=== PATIENT | female | born 1995 | race Caucasian/White ===

== ENCOUNTER 2019-05-08 04:08 | Emergency (ER) | payer OTHER ==
[~2019-05-08] VITALS: Ht 170.2 cm; Wt 68.0 kg
[2019-05-08 05:38] LABS: HEMATOCRIT 40.8 % (37.0-47.0); HEMOGLOBIN 13.5 gm/dL (12.0-15.0); MCH 30.8 pg (26.0-34.0); MCHC 33.2 g/dL (28.0-37.0); MCV 92.8 fL (80.0-100.0); RBC 4.4 mil/uL (4.20-5.00); RDW 13.2 % (10.5-14.5); WBC 7.5 thou/uL (4.0-11.0)
[2019-05-08 05:48] LABS: CALCIUM 9.9 mg/dL (8.5-10.1); POTASSIUM 3.8 mmol/L (3.5-5.1)
[2019-05-08] MEDS ORDERED: MOBIC15 MG PO (07:04)
[2019-05-08] MEDS ORDERED: CYCLOBENZAPRINE5 MG PO (07:04)
[2019-05-08 07:26] VITALS: BP 117/53
== END 2019-05-08 07:27 | disposition home or self-care (01) ==
LOC: ER 04:08
PROVIDERS: Emergency Medicine
DX: S16.1XXA Strain of muscle, fascia and tendon at neck level, initial encounter (principal); S39.012A Strain of muscle, fascia and tendon of lower back, initial encounter; V49.59XA Passenger injured in collision with other motor vehicles in traffic accident, initial encounter; Y93.89 Activity, other specified; Y92.89 Other specified places as the place of occurrence of the external cause; Y99.8 Other external cause status